=== PATIENT | male | born 1955 | race Hispanic/Latino ===

== ENCOUNTER 2017-01-29 11:33 | Emergency (ER) | payer BC ==
[~2017-01-29] VITALS: Ht 167.6 cm; Wt 74.8 kg
[~2017-01-29 11:33] MED LIST: LOPERAMIDE2 MG PO; ZOFRAN ODT4 MG PO
== END 2017-01-29 12:45 | disposition home or self-care (01) ==
LOC: ED 11:33
DX: M54.41 Lumbago with sciatica, right side (principal); F17.200 Nicotine dependence, unspecified, uncomplicated
CPT/HCPCS: 99282